=== PATIENT | female | born 1980 | race Caucasian/White ===

== ENCOUNTER 2019-10-21 16:59 | Emergency (ER) | payer OTHER ==
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
[2019-10-21 17:16] VITALS: BP 118/67
[2019-10-21] MEDS ORDERED: Ibuprofen TAB* 400 MG PO ONE (17:55)
[2019-10-21] MEDS ORDERED: Lidocaine 1% MPF ** 5 ML VIAL INJ ONE (18:08)
== END 2019-10-21 19:48 | disposition home or self-care (01) ==
LOC: UCEAST 16:59
DX: S09.90XA Unspecified injury of head, initial encounter (principal); S01.01XA Laceration without foreign body of scalp, initial encounter; M54.2 Cervicalgia; M54.6 Pain in thoracic spine; M54.5 Low back pain; Y04.2XXA Assault by strike against or bumped into by another person, initial encounter; Y92.59 Other trade areas as the place of occurrence of the external cause; Y07.03 Male partner, perpetrator of maltreatment and neglect; E04.1 Nontoxic single thyroid nodule; Z32.02 Encounter for pregnancy test, result negative; F17.200 Nicotine dependence, unspecified, uncomplicated
CPT/HCPCS: 12002; 70450; 72125; 72131; 81003; 84702; 99202; A9270-GY; G0463